=== PATIENT | female | born 1950 | race Caucasian/White ===

== ENCOUNTER 2017-06-07 16:35 | Inpatient (IN) | payer MEDICARE ==
[2017-06-07] VITALS (11 sets, daily range): BP systolic 143–202; BP diastolic 84–109; PULSE 104–117; RESP 12–26; TEMP 98.1–100.2; O2SAT 98–100
[~2017-06-07] VITALS: Ht 167.6 cm; Wt 55.9 kg
[2017-06-07] MEDS ORDERED: LORazepam 2 MG/ML VIAL ONE (16:40)
[2017-06-07] MEDS ORDERED: VECURONIUM BROMIDE 10 MG VIAL ONE (16:49)
[2017-06-07] MEDS ORDERED: LIDOCAINE HCL 2% 100 MG/5 ML SYRINGE ONE (16:49)
[2017-06-07] MEDS ORDERED: ADDE30TA PO (16:58)
[2017-06-07] MEDS ORDERED: BUPR1TAB70 PO (16:58)
[2017-06-07] MEDS ORDERED: TEMA30CA PO (16:58)
[2017-06-07] MEDS ORDERED: FLUO40CA PO (16:58)
[2017-06-07] MEDS ORDERED: VECURONIUM BROMIDE 10 MG VIAL IV PUSH ONE ×2 (17:00→17:15)
[2017-06-07] MEDS ORDERED: LORazepam 2 MG/ML VIAL IV PUSH ONE (17:15)
[2017-06-07] MEDS ORDERED: SODIUM CHLORIDE 0.9% FLUSH 10 ML FLUSH IV FLUSH PRN (17:15)
[2017-06-07] MEDS ORDERED: SODIUM CHLORIDE 0.9% FLUSH 10 ML FLUSH IVF PRN (17:15)
--- NOTE | 2017-06-07 17:22 | PD ---
HPI Chief Complaint: Altered Mental Status Time Seen by Provider: 17:01 Travel History International Travel<30 days: No Contact w/Intl Traveler<30days: No Traveled to known affect area: No History of Present Illness HPI 66-year-old female patient presents to the ER today brought in by EMS, has been more disoriented in the last 2 days according to , having several falls last night, slurred speech, gaze deviation according to EMS, but was answering some questions while on the ambulance. However, she had a rapid decline of mental status while on the ambulance and by the time she got to me, patient is unresponsive to pain, she is intubated by me for airway protection. Modifying Factors: None Associated Signs & Symptoms: Altered mental status, poorly responsive, intubated Risk Factors: None PFSH Past Medical History Medical History: Unable to Obtain Tetanus Vaccination: Unknown Past Surgical History Surgical History: Unable to Obtain Social History Alcohol Use: No Tobacco Use: No Allergies-Medications (Allergen,Severity, Reaction): Coded Allergies: No Allergy Information Available (Unverified , 06/07/17) Reported Meds & Prescriptions Reported Meds & Active Scripts Active Reported Adderall (Amphetamine-Dextroamphetamine) 30 Mg Tab 30 Mg PO BID Avoid late evening doses. Space doses at least 4 to 6 hours if more than once/day dosing. Fluoxetine (Fluoxetine HCl) 40 Mg Cap 40 Cap PO DAILY Bupropion HCl ER 12 HR (Bupropion HCl) 100 Mg Tab 150 Mg PO Q12HR Temazepam 30 Mg Cap 30 Mg PO HS PRN Review of Systems ROS Limitations: Intubated Physical Exam Narrative GENERAL: Well-developed elderly female patient currently obtunded, decorticate positioning notable, in respiratory distress. SKIN: Focused skin assessment warm/dry. HEAD: Ecchymosis notable over her left eyebrow, there is also ecchymosis notable over the right posterior auricular area. Normocephalic. EYES: Pupils large equal and round, poorly reactive to light bilaterally. No scleral icterus. No injection or drainage. There is notable right word gaze of the right eye. ENT: No nasal bleeding or discharge. Mucous membranes pink and moist. NECK: Trachea midline. No JVD. C-collar in place. CARDIOVASCULAR: Fast and regular rhythm. No murmur appreciated. RESPIRATORY: Moderate accessory muscle use. Decreased throughout. Breath sounds equal bilaterally. GASTROINTESTINAL: Abdomen soft, non-tender, nondistended. Hepatic and splenic margins not palpable. MUSCULOSKELETAL: No obvious deformities. No clubbing. No cyanosis. No edema. NEUROLOGICAL: Obtunded, unresponsive to painful stimuli, tonic, positioning. PSYCHIATRIC: Obtunded. Data Data Last Documented VS Vital Signs Date Time Temp Pulse Resp B/P (MAP) Pulse Ox O2 Delivery O2 Flow Rate FiO2 06/07/17 17:27 117 16 163/94 (117) 100 Ventilator 100 06/07/17 17:23 100.2 Orders Orders Lorazepam Inj (Ativan Inj) (06/07/17 16:40) Vecuronium 10 Mg Inj (Norcuron 10 Mg Inj (06/07/17 16:49) Lidocaine 2% Inj (Xylocaine 2% Inj) (06/07/17 16:49) Vecuronium 10 Mg Inj (Norcuron 10 Mg Inj (06/07/17 17:00) Electrocardiogram (06/07/17 17:) Ammonia (06/07/17 17:01) Complete Blood Count With Diff (06/07/17 17:) Comprehensive Metabolic Panel (06/07/17 17:) Creatine Kinase (Cpk) (06/07/17 17:01) Prothrombin Time / Inr (Pt) (06/07/17 17:) Act Partial Throm Time (Ptt) (06/07/17 17:) Troponin I (06/07/17 17:) Urinalysis - C+S If Indicated (06/07/17 17:) Lactic Acid Sepsis Protocol (06/07/17 17:) Arterial Blood Gas (Abg) (06/07/17 17:) Blood Culture (06/07/17 17:) Chest, Single Ap (06/07/17 17:) Ct Brain W/O Iv Contrast(Rout) (06/07/17 17:) Blood Glucose (06/07/17 17:) Ecg Monitoring (06/07/17 17:) Iv Access Insert/Monitor (06/07/17 17:) Oximetry (06/07/17 17:01) Urinary Catheter Insert/Apply (06/07/17 17:) Sodium Chloride 0.9% Flush (Ns Flush) (06/07/17 17:15) Drug Screen, Random Urine (06/07/17 17:01) Alcohol (Ethanol) (06/07/17 17:01) Ct Cerv Spine W/O Contrast (06/07/17 17:01) Ng Gastric Tube Insert/Monitor (06/07/17 17:01) Vecuronium 10 Mg Inj (Norcuron 10 Mg Inj (06/07/17 17:15) Sodium Chloride 0.9% Flush (Ns Flush) (06/07/17 17:15) Restraints Non-Violent ROSHAN.Q3H (06/07/17 17:01) Lorazepam Inj (Ativan Inj) (06/07/17 17:15) Admit Order (Ed Use Only) (06/07/17 17:41) MDM Medical Decision Making Medical Screen Exam Complete: Yes Emergency Medical Condition: Yes Medical Record Reviewed: Yes Interpretation(s) Last [address] 06/07/17 1701 Signed Impressions: Service Date/Time: Friday, June 07, 2017 17:13 - CONCLUSION: 1. Large subdural hemorrhage surrounding the right hemisphere measuring a maximum of 1.8 cm in thickness. There is significant mass effect associated with this. There is 1.2 cm of cgjvd-ai-sarn falcine shift. There is effacement of the perimesencephalic cisterns indicating significant downward herniation. There are edematous changes within the right temporal cortex and possibly within the sean. Maxx Lomeli MD Differential Diagnosis CVA versus ICH versus metabolic issues versus dehydration versus sepsis versus seizures Narrative Course Patient was intubated by me in the ER for airway protection. CAT scan reveals large subdural with large shift, concerning for herniation, and the case was discussed with Dr. Cedeno who came in and saw the patient, agrees to admit the patient to ICU. Aggregate critical care time was 35 minutes. Time to perform other separately billable procedures was not included in the critical care time. My time did not include minutes spent treating any other patients simultaneously or on activities that did not directly contribute to the patient's treatment. The services I provided to this patient were to treat and/or prevent clinically significant deterioration that could result in: Worsening ICH, herniation, I provided critical care services requiring my management, as noted below: Chart data review, documentation time, medication orders and management, vital sign assessments/reviewing monitor data, ordering and reviewing lab tests, ordering and interpreting/reviewing x-rays and diagnostic studies, care of the patient and discussion of the patient with the admitting physicians. Procedures Procedure Narrative After the risks and benefits were discussed the following procedure was performed: INTUBATION: The patient was put in optimal position for the procedure. Rapid sequence intubation was initiated by me using 2 milligrams of Ativan IV and 10 milligrams of vecuronium IV. The patient was intubated with a 6.5 cuffed endotracheal tube. Tube placement was confirmed by visualization of the tube and balloon passing through the cords, capnometry and subsequent chest x-ray. Breath sounds were equal and well aerated bilaterally postintubation. No breath sounds over stomach. Patient tolerated procedure well. Diagnosis Primary Impression: Intracranial hemorrhage Additional Impression: Endotracheally intubated Admitting Information Admitting Physician Requests: Admit Oni Morris MD Jun 07, 2017 17:22
--- NOTE | 2017-06-07 17:27 | RADRPT ---
EXAM DATE/TIME: 06/07/2017 17:13 [facility] COMPARISON: No previous studies available for comparison. INDICATIONS : Trauma, fall today. RADIATION DOSE: 34.71 CTDIvol (mGy) MEDICAL HISTORY : Non-responsive. SURGICAL HISTORY : Non-responsive. ENCOUNTER: Initial ACUITY: 1 day PAIN SCALE: Non-responsive LOCATION: Bilateral head TECHNIQUE: Multiple contiguous axial images were obtained of the head. Using automated exposure control and adj ustment of the mA and/or kV according to patient size, radiation dose was kept as low as reasonably a chievable to obtain optimal diagnostic quality images. DICOM format image data is available electro nically for review and comparison. FINDINGS: The exam demonstrates a large subdural hematoma along the right hemisphere. There is significant mass effect with approximately 1.2 cm of gwmdv-hx-ecwz falcine shift. There is evidence of downward herni ation. There is effacement of the perimesencephalic cisterns. There are edematous changes within the medial right temporal cortex as well. The fourth ventricle is quite small in size. The osseous structures of the skull are grossly intact. The sinuses are clear. CONCLUSION: 1. Large subdural hemorrhage surrounding the right hemisphere measuring a maximum of 1.8 cm in thickn ess. There is significant mass effect associated with this. There is 1.2 cm of zwjlf-nj-gmrm falcine shift. There is effacement of the perimesencephalic cisterns indicating significant downward herniati on. There are edematous changes within the right temporal cortex and possibly within the sean. Maxx Lomeli MD on June 07, 2017 at 17:20 Board Certified Radiologist. This report was verified electronically.
--- NOTE | 2017-06-07 18:05 | RADRPT ---
EXAM DATE/TIME: 06/07/2017 17:36 [facility] COMPARISON: CT BRAIN W/O CONTRAST, June 07, 2017, 17:13. INDICATIONS : Post intubation. Patient found unresponsive. MEDICAL HISTORY : Unobtainble. SURGICAL HISTORY : Unobtainble. ENCOUNTER: Initial ACUITY: 1 day PAIN SCORE: Non-responsive. LOCATION: Bilateral chest FINDINGS: Endotracheal tube is in good position. The heart is normal in size. There is minimal effusion at the right lung base. There are mild chronic interstitial changes. The lungs are otherwise clear. The osse ous structures are grossly intact. CONCLUSION: 1. Blunting of the costophrenic sulcus on the right suggesting a small contusion. 2. ET tube in good position. Maxx Lomeli MD on June 07, 2017 at 18:02 Board Certified Radiologist. This report was verified electronically.
--- NOTE | 2017-06-07 18:09 | PD.CONS ---
History of Present Illness Service Neurosurgery Consult Requested By Emergency room physician Reason for Consult Large right acute subdural hemorrhage after a fall Primary Care Physician Unknown Diagnoses: History of Present Illness 65-year-old female who was brought to [facility] emergency room after a fall with subsequent declining level of alertness and consciousness. By the time she presented to the emergency room she was noted to be decerebrate posturing with a Janeth Coma Score 4. She was intubated and CT scan head obtained reveals a large acute right frontotemporoparietal 18 cm thick subdural hemorrhage with mass effect and 12 mm midline shift and hypodensities in the brainstem possibly ischemia. Her is at the bedside and relates that she had multiple falls and her overall general health has been poor lately. She has been suffering from tremors with the possible Parkinson's disease along with multiple orthopedic surgeries which have limited her activity status. Review of Systems ROS Limitations: Unresponsive Past Family Social History Allergies: Coded Allergies: No Allergy Information Available (Unverified , 06/07/17) Reported Medications Adderall (Amphetamine-Dextroamphetamine) 30 Mg Tab 30 Mg PO BID Fluoxetine (Fluoxetine HCl) 40 Mg Cap 40 Cap PO DAILY Bupropion HCl ER 12 HR (Bupropion HCl) 100 Mg Tab 150 Mg PO Q12HR Temazepam 30 Mg Cap 30 Mg PO HS PRN Social History No alcohol or tobacco use. She is and is here with her. Physical Exam Vital Signs Vital Signs Date Time Temp Pulse Resp B/P (MAP) Pulse Ox O2 Delivery O2 Flow Rate FiO2 06/07/17 17:27 117 16 163/94 (117) 100 Ventilator 100 06/07/17 17:23 100.2 117 18 162/94 (116) 100 Ventilator 100 06/07/17 17:00 107 20 179/84 (115) 100 Ventilator 100 06/07/17 16:45 06/07/17 16:35 116 12 202/109 (140) 100 Physical Exam GENERAL: This is a well-nourished, well-developed patient, elderly female who is intubated and nonresponsive. SKIN: No rashes, ecchymoses or lesions. Cool and dry. HEAD: No battles or raccoon's sign noted. EYES: Pupils are fixed and dilated bilaterally 5 mm and nonreactive. ENT: Nose without bleeding, purulent drainage or septal hematoma. Throat without erythema with endotracheal tube in place. NECK: Trachea midline. No JVD or lymphadenopathy. Cervical collar in place. CARDIOVASCULAR: Regular rate and rhythm without murmurs, gallops, or rubs. RESPIRATORY: Clear to auscultation. Breath sounds equal bilaterally. No wheezes , rales, or rhonchi. GASTROINTESTINAL: Abdomen soft, non-tender, nondistended. No hepato-splenomegaly , or palpable masses. No guarding. MUSCULOSKELETAL: Extremities without clubbing, cyanosis, or edema. No joint tenderness, effusion, or edema noted. No calf tenderness. Negative Homans sign bilaterally. NEUROLOGICAL: She does not open her eyes to painful stimulation and has not received any sedation. No motor response to painful stimulation noted. No spontaneous respirations. Pupils are fixed and dilated. Negative corneal reflex, negative doll's reflex, negative gag reflex, negative cough reflex. Janeth Coma Score 3. Imaging Last Impressions Head CT 06/07/17 1701 Signed Impressions: Service Date/Time: Wednesday, June 07, 2017 17:13 - CONCLUSION: 1. Large subdural hemorrhage surrounding the right hemisphere measuring a maximum of 1.8 cm in thickness. There is significant mass effect associated with this. There is 1.2 cm of mhdqf-bq-eufo falcine shift. There is effacement of the perimesencephalic cisterns indicating significant downward herniation. There are edematous changes within the right temporal cortex and possibly within the sean. Maxx Lomeli MD Assessment and Plan Assessment and Plan 65-year-old lady with a large right acute subdural hemorrhage with mass effect and midline shift and cerebral transtentorial herniation with a Janeth's coma score of 3 with loss of brain stem reflexes. Unfortunately this is a severe injury with very poor prognosis. We discussed the option of an emergent right craniotomy for subdural hemorrhage evacuation but in all likelihood she will not achieve any functional recovery given that she has lost all of her brainstem reflexes and has progressed to clinical brain . relates that the she has expressed to him explicitly that she would not want prolonged ventilator support or any heroic measures to be undertaken. He does not want any surgical intervention undertaken. He is also contemplating withdrawal of ventilator support once the other family members have also notified. Accordingly we will honor their wishes. Gee Cedeno MD Jun 07, 2017 18:09
[2017-06-07] MEDS ORDERED: PHENYLEPHRINE INJ 40 MG in DEXTROSE 5% IN WATE 500 ML INJ 496 ML IV PRN ×2 (18:15)
[2017-06-07] MEDS ORDERED: CALCIUM GLUCONATE INJ 1 GM in SODIUM CHLORIDE 0.9% INJ 100 ML IV PRN (18:15)
[2017-06-07] MEDS ORDERED: POTASSIUM CHLOR 20 MEQ PREMIX 100 ML IV PRN ×3 (18:15→19:15)
[2017-06-07] MEDS ORDERED: LABETALOL HCL 100 MG/20 ML VIAL IV PUSH PRN (18:15)
[2017-06-07] MEDS ORDERED: TERBUTALINE INJ 1 MG/ML AMP SQ PRN (18:15)
[2017-06-07] MEDS ORDERED: ACETAMINOPHEN 325 MG TAB PO PRN (18:15)
[2017-06-07] MEDS ORDERED: MAGNESIUM SULFATE INJ 2 GM in SODIUM CHLORIDE 0.9% INJ 100 ML IV PRN (18:15)
--- NOTE | 2017-06-07 18:19 | RADRPT ---
EXAM DATE/TIME: 06/07/2017 17:13 [facility] COMPARISON: No previous studies available for comparison. INDICATIONS : Fall, neck pain. RADIATION DOSE: 16.98 CTDIvol (mGy) MEDICAL HISTORY : None SURGICAL HISTORY : None. ENCOUNTER: Initial ACUITY: 1 day PAIN SCALE: 5/10 LOCATION: neck TECHNIQUE: Volumetric scanning of the cervical spine was performed. Multiplanar reconstructions in the sagittal, coronal and oblique axial planes were performed. Using automated exposure control and adjustment o f the mA and/or kV according to patient size, radiation dose was kept as low as reasonably achievable to obtain optimal diagnostic quality images. DICOM format image data is available electronically f or review and comparison. FINDINGS: Alignment: Craniocervical and cervical vertebral body alignment are intact without evidence of listhesis. Osseous structures and facet joints: Vertebral bodies and posterior elements are intact. There is dose of compression deformity. Facet garth nts are in satisfactory alignment. Posterior elements are intact. Intervertebral disc spaces: Mild to moderate degenerative disc disease is noted at C5-6 and C6-7. A prominent posterior disc osteophyte complexes noted at C6-7. There is anterior epidural space and w ith mild spinal stenosis. Neurologic structures: Unremarkable CONCLUSION: 1. No evidence of traumatic listhesis or fracture. 2. Prominent disc osteophyte complex at C6-7 with anterior epidural effacement 3. No evidence of soft tissue injury. 4. Endotracheal tube in place. Tacos Serna MD on June 07, 2017 at 18:11 Board Certified Radiologist. This report was verified electronically.
[2017-06-07 18:25] LABS: AUTOMATED NEUTROPHIL # 18.6 TH/MM3 (1.8-7.7); BASOPHIL % 0.1 % (0.0-2.0); EOSINOPHIL % 0.1 % (0.0-4.0); HEMATOCRIT 38.8 % (35.0-46.0); HEMOGLOBIN 12.9 GM/DL (11.6-15.3); LYMPH % 2.8 % (9.0-44.0); LYMPHOCYTE # 0.6 TH/MM3 (1.0-4.8); MEAN CELL VOLUME 94.5 FL (80.0-100.0); MEAN CORPUSCULAR HEMOGLOBIN 31.6 PG (27.0-34.0); MEAN CORPUSCULAR HGB CONC 33.4 % (32.0-36.0); MEAN PLATELET VOLUME 7.5 FL (7.0-11.0); MONO % 6.3 % (0.0-8.0); MONOCYTE # 1.3 TH/MM3 (0-0.9); NEUT % 90.7 % (16.0-70.0); PLATELET COUNT 352 TH/MM3 (150-450); RED CELL DISTRIBUTION WIDTH 12.5 % (11.6-17.2); WHITE BLOOD COUNT 20.5 TH/MM3 (4.0-11.0)
[2017-06-07 18:36] LABS: BILIRUBIN, URINE NEG (NEG); BLOOD, URINE MOD (NEG); GLUCOSE,URINE NEG (NEG); HYALINE CAST, URINE 34 /lpf (RARE); KETONE, URINE 10 mg/dL (NEG); MUCUS URINE MANY /lpf (OCC); NITRITE,URINE NEG (NEG); PH, URINE 5.5 (5.0-8.5); URINE COLOR YELLOW (YELLW/STRAW); URINE LEUKOCYTE ESTERASE NEG (NEG)
[2017-06-07 18:38] LABS: INTERNATIONAL NORMALIZED RATIO 1.1 RATIO
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
[2017-06-07 18:44] LABS: LACTIC ACID SEPSIS PROTOCOL 2.8 mmol/L (0.4-2.0)
[2017-06-07] MEDS ORDERED: levETIRAcetam INJ 100 ML IV ONE (19:15)
[2017-06-07] MEDS ORDERED: MAGNESIUM OXIDE 400 MG TAB PO PRN (19:15)
[2017-06-07] MEDS ORDERED: POTASSIUM CHLORIDE 25 MEQ EFFERVESCENT TAB PO PRN (19:15)
[2017-06-07] MEDS ORDERED: MAGNESIUM SULFATE INJ 2 GM in SODIUM CHLORIDE 0.9% INJ 96 ML IV PRN (19:15)
[2017-06-07] MEDS ORDERED: POTASSIUM CHLOR 40 MEQ PREMIX 100 ML IV PRN ×2 (19:15)
[2017-06-07] MEDS ORDERED: SODIUM PHOSPHATE INJ 30 MMOL in SODIUM CHLOR 0.9% 250 ML INJ 240 ML IV PRN (19:15)
[2017-06-07] MEDS ORDERED: POTASSIUM PHOSPHATE MONOBASIC 500 MG TAB PO PRN (19:15)
[2017-06-07] MEDS ORDERED: POTASSIUM PHOSPHATE INJ 30 MMOL in SODIUM CHLOR 0.9% 250 ML INJ 250 ML IV PRN (19:15)
[2017-06-07] MEDS ORDERED: MAGNESIUM SULFATE INJ 4 GM in SODIUM CHLORIDE 0.9% INJ 92 ML IV PRN (19:15)
[2017-06-07] MEDS ORDERED: POTASSIUM PHOSPHATE MONOBASIC 500 MG TAB PO/TUBE PRN (19:15)
[2017-06-07 19:24] LABS: ALBUMIN 3.6 GM/DL (3.4-5.0); ALKALINE PHOSPHATASE 141 U/L (45-117); ALT (GPT) 28 U/L (10-53); AST (GOT) 50 U/L (15-37); BLOOD UREA NITROGEN 14 MG/DL (7-18); CALCIUM 9.2 MG/DL (8.5-10.1); CHLORIDE 96 MEQ/L (98-107); GLOMERULAR FILTRATION RATE 54 ML/MIN (>89); GLUCOSE,RANDOM 158 MG/DL (74-106); SODIUM (NA) 129 MEQ/L (136-145); TOTAL BILIRUBIN ADULT 0.7 MG/DL (0.2-1.0); TOTAL PROTEIN 8.4 GM/DL (6.4-8.2); TROPONIN I 0.03 NG/ML (0.02-0.05)
[2017-06-07] MEDS ORDERED: SODIUM CHLOR 0.9% 1000 ML INJ 1,000 ML IV ONE (19:30)
[2017-06-07] MEDS ORDERED: NS + KCL 20 MEQ INJ 1,000 ML IV SCH (20:00)
[2017-06-07] MEDS ORDERED: GLUCAGON 1 MG/ML VIAL OTHER PRN (20:00)
[2017-06-07] MEDS ORDERED: DEXTROSE 50% IN WATER 50 ML VIAL(D50) IV PUSH PRN (20:00)
[2017-06-07] MEDS ORDERED: hydrALAZINE HCL 20 MG/ML VIAL IV PUSH PRN (20:15)
[2017-06-07] MEDS: NS + KCL 20 MEQ INJ 1,000 ML IV SCH (20:15)
[2017-06-07] MEDS ORDERED: RESP: ALBUTEROL 2.5 MG/3 ML NEB (PRN) NEB (20:15)
[2017-06-07] MEDS: SODIUM CHLORIDE 23.4% INJ 188 MEQ in SODIUM CHLOR 0.9% 1000 ML INJ 1,000 ML IV SCH (21:00)
[2017-06-07] MEDS: SODIUM CHLORIDE 0.9% FLUSH 10 ML FLUSH IV FLUSH SCH (21:00)
[2017-06-07] MEDS: FAMOTIDINE 40 MG/5 ML LIQ 50 ML BTL NG SCH (21:00)
[2017-06-07] MEDS: CHLORHEXIDINE 0.12% (ORAL KIT) 15 ML CUP MT SCH (21:00)
[2017-06-07] MEDS: RESP: ALBUTEROL 2.5 MG/3 ML NEB (SCH) NEB (21:11)
[2017-06-07] MEDS: PROPOFOL 1000 MG/100 ML INJ 100 ML IV PRN (21:50)
[2017-06-08] VITALS (14 sets, daily range): BP systolic 115–142; BP diastolic 70–80; PULSE 92–108; RESP 22–32; TEMP 98–99.7; O2SAT 93–100
[2017-06-08] MEDS: RESP: ALBUTEROL 2.5 MG/3 ML NEB (SCH) NEB ×4 (02:56→19:54)
[2017-06-08] MEDS: NS + KCL 20 MEQ INJ 1,000 ML IV SCH ×2 (04:56→16:43)
[2017-06-08] MEDS: PROPOFOL 1000 MG/100 ML INJ 100 ML IV PRN ×2 (04:56→21:19)
[2017-06-08 05:43] LABS: AUTOMATED NEUTROPHIL # 8.2 TH/MM3 (1.8-7.7); BASOPHIL % 0.1 % (0.0-2.0); HEMATOCRIT 27.7 % (35.0-46.0); HEMOGLOBIN 9.5 GM/DL (11.6-15.3); LYMPHOCYTE # 0.7 TH/MM3 (1.0-4.8); MEAN CELL VOLUME 94.1 FL (80.0-100.0); MEAN CORPUSCULAR HEMOGLOBIN 32.3 PG (27.0-34.0); MEAN CORPUSCULAR HGB CONC 34.3 % (32.0-36.0); MEAN PLATELET VOLUME 7.4 FL (7.0-11.0); MONO % 11.8 % (0.0-8.0); MONOCYTE # 1.2 TH/MM3 (0-0.9); NEUT % 81.1 % (16.0-70.0); PLATELET COUNT 226 TH/MM3 (150-450); RED BLOOD COUNT 2.95 MIL/MM3 (4.00-5.30); RED CELL DISTRIBUTION WIDTH 12.3 % (11.6-17.2); WHITE BLOOD COUNT 10.2 TH/MM3 (4.0-11.0)
[2017-06-08] MEDS: INSULIN ASPART SUPPLEMENTAL SCALE SQ SCH ×4 (06:00→15:00)
[2017-06-08 06:14] LABS: BICARBONATE 22.6 MEQ/L (21.0-32.0); CALCIUM 7.5 MG/DL (8.5-10.1); CREATININE 0.42 MG/DL (0.50-1.00); PHOSPHORUS 1.8 MG/DL (2.5-4.9)
[2017-06-08] MEDS: CHLORHEXIDINE 0.12% (ORAL KIT) 15 ML CUP MT SCH ×2 (08:00→21:21)
[2017-06-08] MEDS: FAMOTIDINE 40 MG/5 ML LIQ 50 ML BTL NG SCH ×2 (08:37→21:00)
[2017-06-08] MEDS: SODIUM CHLORIDE 0.9% FLUSH 10 ML FLUSH IV FLUSH SCH ×2 (08:37→21:00)
--- NOTE | 2017-06-08 09:34 | HHI.CCPN ---
Subjective Remarks/Hospital Course 65-year-old female with past medical history of depression who presented to [facility] emergency department with altered mental status and was found to have acute subdural hematoma. Her states that she has been ill last week with a flulike illness. She also has chronic depression, anxiety and tremor. She had undergone workup for possible Parkinson 's disease. She was recently started on bupropion about a week ago and she has noticed increased anxiety and "not thinking clearly" which she attributed to the medication. Today she fell three times. Once she fell from standing in the bedroom this morning, then rolled out of bed. Around 2:30 she fell off the toilet and hit her right head on the side of the bathtub. states she was unresponsive. Per EVAC she was speaking some during transport but GCS was 4 upon arrival. She was intubated in the ED for airway protection. CT demonstrated 1.8 cm subdural hematoma with 1.2 [id number] midline shift. There is evidence of uncal herniation. There was edema right temporal cortex and possibly the sean per report. Dr. Cedeno has spoken with patient's and discussed poor prognosis with or without surgical intervention based on loss of some brainstem reflexes and states he does not believe patient would want to proceed with surgery. She will be admitted to [facility]. Son from [place] to arrive tomorrow. 06/08: Devastating neurological injury after fall. Large right acute SDH with herniation. Clinical exam consistent with approaching brain . Objective Vital Signs Date Time Temp Pulse Resp B/P (MAP) Pulse Ox O2 Delivery O2 Flow Rate FiO2 06/08/17 08:00 98.1 94 22 115/70 (85) 99 06/08/17 07:45 50 06/08/17 07:00 Mechanical Ventilator Intake and Output 06/08/17 06/08/17 06/09/17 08:00 16:00 00:00 Intake Total 1100 ml Output Total 800 ml Balance 300 ml Result Diagram: 06/08/17 0409 06/08/17 040 Other Results Laboratory Tests Test 06/07/17 18:11 06/07/17 21:50 Blood Gas Puncture Site RT RADIAL LT RADIAL Blood Gas Patient Temperature 98.6 98.6 Blood Gas HCO3 20 mmol/L (22-26) 19 mmol/L (22-26) Blood Gas Base Excess -4.3 mmol/L (-2-2) -5.1 mmol/L (-2-2) Blood Gas Oxygen Saturation 98 % (90-100) 98 % (90-100) Arterial Blood pH 7.41 (7.380-7.420) 7.40 (7.380-7.420) Arterial Blood Partial Pressure CO2 31 mmHg (38-42) 32 mmHg (38-42) Arterial Blood Partial Pressure O2 519 mmHG (61-120) 241 mmHg (61-120) Arterial Blood Oxygen Content 16.9 Vol % (12.0-20.0) 14.1 Vol % (12.0-20.0) Arterial Blood Carboxyhemoglobin 0.7 % (0-4) 0.9 % (0-4) Arterial Blood Methemoglobin 1.0 % (0-2) 1.1 % (0-2) Blood Gas Hemoglobin 11.3 G/DL (12.0-16.0) 9.9 G/DL (12.0-16.0) Oxygen Delivery Device VENTILATOR VENTILATOR Blood Gas Ventilator Setting VAC/16/500/+5 PRVC/AC Blood Gas Inspired Oxygen 100 % 50 % Objective Remarks GENERAL: Well-nourished, well-developed thin patient who is orotracheally intubated on mechanical ventilation. She is not on any continuous sedation. SKIN: Warm and dry. HEAD: Atraumatic. Normocephalic. EYES: Pupils equal and round, 5 mm and fixed bilaterally, unresponsive to light. No scleral icterus. No injection or drainage. ENT: No nasal bleeding or discharge. Mucous membranes pink and moist. NECK: Trachea midline. Orally intubated. CARDIOVASCULAR: Tachycardic, regular with sinus tach. No murmurs rubs or gallops. No JVD. RESPIRATORY: 6.[address] There is some blood in the oropharynx. Good breath sounds with rhonchi bilaterally. GASTROINTESTINAL: Abdomen soft, non-tender, nondistended. Midline vertical incision well-healed. : Whyte in place with yellow urine output. MUSCULOSKELETAL: Extremities without clubbing, cyanosis, or edema. No obvious deformities. Well perfused. NEUROLOGICAL: No eye opening. Pupils fixed and dilated to 5 mm. No corneal reflex. No gag. No motor response of upper extremities to deep central noxious stimuli. Ankle flexor response to deep noxious stimuli of lower extremities. Babinski upgoing bilaterally. A/P Assessment and Plan NEURO: Fall Acute subdural hematoma with herniation Neurochecks in ISC Avoid hyponatremia. 2% NaCl at 30 mL/h. Monitor sodium. End-tidal CO2 monitoring with target PaCO2 of 35-40 Keppra 500 mg IV every 12 hours for seizure prophylaxis Was not on antiplatelet or anticoagulant therapy Neurosurgery following, Dr. Cedeno and plan is for nonoperative management per discussion with patient's . Not a survivable injury. RESP: Acute respiratory failure Prior tobacco abuse Intubated with 6.5 endotracheal tube in ED Adjust ventilator to lower tidal volume ventilation with PRVC tidal volume 400/ rate 22/I time 1/PEEP 5/FiO2 100%. Wean FiO2 for sats greater than 92%. We will place on end-tidal CO2 monitoring and obtain ABG to correlate. Adjust minute ventilation to achieve target PaCO2 of 35-40. Albuterol every 6 hours and every 2 hours as needed. (avoided ipratropium to avoid drying of bronchial secretions given the 6.5 endotracheal tube) Chest x-ray was satisfactory endotracheal tube position. Right lower lobe atelectasis. CV: Monitor hemodynamics Labetalol/hydralazine as needed to maintain systolic blood pressure less than 160 Add pressors if they would be needed to maintain mean arterial pressure greater than 65 Bolus 1 L NS now. 0.9 NaCl 20 mg of KCl per liter at 80 from a liters per hour. 2% NaCl at 30 L/h. Follow-up lactic acid GI: Mild AST elevation Insert OG tube in place to low intermittent wall suction. Trend LFT FEN/RENAL: Hyponatremia Mild hyponatremia may be chronic but addressed with 2% 30 mL/hr as part of hyperosmolar therapy for intracerebral edema. ID: Leukocytosis, likely reactive UA with no evidence of infection Patient is at risk for aspiration pneumonitis/pneumonia, will observe Send blood cultures No antibiotics indicated at this time HEME: Was not on antiplatelets or anticoagulant therapy. ENDO: Acute hyperglycemia Likely reactive secondary to subdural hematoma. Will monitor bedside glucose every 6 hours and initiate low-dose insulin sliding scale as indicated PROPH: SCDs for DVT prophylaxis. Pharmacologic DVT prophylaxis is contraindicated due to subdural hematoma. Famotidine OG for stress ulcer prophylaxis ACCESS: Peripheral IV providing adequate access at this time. Place CVL and art line if indicated. Overall impression: Terminal neurological injury following fall. Acute subdural hemorrhage has severely compressed the brain and herniation is ensuing.. Alex Best MD Jun 08, 2017 09:34
[2017-06-08] MEDS: levETIRAcetam INJ 500 MG in SODIUM CHLORIDE 0.9% INJ 100 ML IV SCH ×2 (09:49→21:20)
--- NOTE | 2017-06-08 13:59 | HHI.NSPN ---
(Shen Guzman) History Chief Complaint: Large subdural hemorrhage (Shen Guzman) Interval History 65-year-old female who was brought to [facility] emergency room after a fall with subsequent declining level of alertness and consciousness. By the time she presented to the emergency room she was noted to be decerebrate posturing with a Lorimor Coma Score 4. She was intubated and CT scan head obtained reveals a large acute right frontotemporoparietal 18 cm thick subdural hemorrhage with mass effect and 12 mm midline shift and hypodensities in the brainstem possibly ischemia. Her is at the bedside and relates that she had multiple falls and her overall general health has been poor lately. She has been suffering from tremors with the possible Parkinson's disease along with multiple orthopedic surgeries which have limited her activity status. 06/08/17: Pt intubated. Pupils 5mm NR bilaterally. Positive cough. No gag reflex. Pt extends to deep pain in upper chest. (Shen Guzman) System Review Comments Not able to obtain given clinical condition. (Shen Guzman) Exam Results Vital Signs Date Time Temp Pulse Resp B/P (MAP) Pulse Ox O2 Delivery O2 Flow Rate FiO2 06/08/17 12:10 93 50 06/08/17 08:00 98.1 94 22 115/70 (85) 06/08/17 07:00 Mechanical Ventilator Intake and Output 06/08/17 06/08/17 06/09/17 08:00 16:00 00:00 Intake Total 1100 ml Output Total 800 ml Balance 300 ml (Shen Guzman) Physical Examination General: Pt intubated in ICU Eyes: Pupils 5mm bilaterally NR bilaterally Resp: Intubated. CTA bilaterally. RR is 30-32. Heart: Tachycardic. No murmurs Abd: Soft absent bs Skin: No cyanosis or erythema Muscle: Not following for muscle testing. She extends the RUE to deep pain in upper chest. Neuro: Pt not opening eyes. Pupils 5mm bilaterally. NR bilaterally. Not following commands. She extends RUE to deep pain in upper chest. She is breathing over the vent. positive cough reflex. No gag. (Shen Guzman) Lab, Micro, Other Results Last Impressions Head CT 06/07/171700 Signed Impressions: Service Date/Time: Wednesday, June 07, 2017 17:13 - CONCLUSION: 1. Large subdural hemorrhage surrounding the right hemisphere measuring a maximum of 1.8 cm in thickness. There is significant mass effect associated with this. There is 1.2 cm of [id number]-[id number] falcine shift. There is effacement of the perimesencephalic cisterns indicating significant downward herniation. There are edematous changes within the right temporal cortex and possibly within the sean. Maxx Lomeli MD Chest X-Ray 06/07/171700 Signed Impressions: Service Date/Time: Wednesday, June 07, 2017 17:36 - CONCLUSION: 1. Blunting of the costophrenic sulcus on the right suggesting a small contusion. 2. ET tube in good position. Maxx Lomeli MD Cervical Spine CT 06/07/171700 Signed Impressions: Service Date/Time: Wednesday, June 07, 2017 17:13 - CONCLUSION: 1. No evidence of traumatic listhesis or fracture. 2. Prominent disc osteophyte complex at C6- 7 with anterior epidural effacement 3. No evidence of soft tissue injury. 4. Endotracheal tube in place. Tacos Serna MD Laboratory Tests Test 06/07/17 17:15 06/07/17 17:25 06/07/17 18:11 06/07/17 20:40 Blood Urea Nitrogen 14 MG/DL Creatinine 0.90 MG/DL Random Glucose 158 MG/DL Total Protein 8.4 GM/DL Albumin 3.6 GM/DL Calcium Level 9.2 MG/DL Alkaline Phosphatase 141 U/L Aspartate Amino Transf (AST/SGOT) 50 U/L Alanine Aminotransferase (ALT/SGPT) 28 U/L Total Bilirubin 0.7 MG/DL Sodium Level 129 MEQ/L Potassium Level 4.4 MEQ/L Chloride Level 96 MEQ/L Carbon Dioxide Level 19.0 MEQ/L Anion Gap 14 MEQ/L Estimat Glomerular Filtration Rate 54 ML/MIN Total Creatine Kinase 536 U/L Creatine Kinase MB 3.8 NG/ML Creatine Kinase MB % 0.7 % Troponin I 0.03 NG/ML Ethyl Alcohol Level LESS THAN 3 MG/DL White Blood Count 20.5 TH/MM3 Red Blood Count 4.10 MIL/MM3 Hemoglobin 12.9 GM/DL Hematocrit 38.8 % Mean Corpuscular Volume 94.5 FL Mean Corpuscular Hemoglobin 31.6 PG Mean Corpuscular Hemoglobin Concent 33.4 % Red Cell Distribution Width 12.5 % Platelet Count 352 TH/MM3 Mean Platelet Volume 7.5 FL Neutrophils (%) (Auto) 90.7 % Lymphocytes (%) (Auto) 2.8 % Monocytes (%) (Auto) 6.3 % Eosinophils (%) (Auto) 0.1 % Basophils (%) (Auto) 0.1 % Neutrophils # (Auto) 18.6 TH/MM3 Lymphocytes # (Auto) 0.6 TH/MM3 Monocytes # (Auto) 1.3 TH/MM3 Eosinophils # (Auto) 0.0 TH/MM3 Basophils # (Auto) 0.0 TH/MM3 CBC Comment DIFF FINAL Differential Comment Prothrombin Time 11.0 SEC Prothromb Time International Ratio 1.1 RATIO Activated Partial Thromboplast Time 24.7 SEC Urine Color YELLOW Urine Turbidity CLEAR Urine pH 5.5 Urine Specific [place] 1.020 Urine Protein 30 mg/dL Urine Glucose (UA) NEG mg/dL Urine Ketones 10 mg/dL Urine Occult Blood MOD Urine Nitrite NEG Urine Bilirubin NEG Urine Urobilinogen LESS THAN 2.0 MG/DL Urine Leukocyte Esterase NEG Urine RBC 2 /hpf Urine WBC 2 /hpf Urine Hyaline Casts 34 /lpf Urine Mucus MANY /lpf Microscopic Urinalysis Comment CATH-CULT NOT IND Lactic Acid Level 2.8 mmol/L Ammonia 14 MCMOL/L Urine Opiates Screen NEG Urine Barbiturates Screen NEG Urine Amphetamines Screen NEG Urine Benzodiazepines Screen POS Urine Cocaine Screen NEG Urine Cannabinoids Screen NEG Blood Gas Puncture Site RT RADIAL Blood Gas Patient Temperature 98.6 Blood Gas HCO3 20 mmol/L Blood Gas Base Excess -4.3 mmol/L Blood Gas Oxygen Saturation 98 % Arterial Blood pH 7.41 Arterial Blood Partial Pressure CO2 31 mmHg Arterial Blood Partial Pressure O2 519 mmHG Arterial Blood Oxygen Content 16.9 Vol % Arterial Blood Carboxyhemoglobin 0.7 % Arterial Blood Methemoglobin 1.0 % Blood Gas Hemoglobin 11.3 G/DL Oxygen Delivery Device VENTILATOR Blood Gas Ventilator Setting VAC/16/500/+5 Blood Gas Inspired Oxygen 100 % Nasal Screen MRSA (PCR) MRSA NOT DETECTED Test 06/07/17 20:56 06/07/17 21:50 06/08/17 04:09 Lactic Acid Level 1.9 mmol/L Blood Gas Puncture Site LT RADIAL Blood Gas Patient Temperature 98.6 Blood Gas HCO3 19 mmol/L Blood Gas Base Excess -5.1 mmol/L Blood Gas Oxygen Saturation 98 % Arterial Blood pH 7.40 Arterial Blood Partial Pressure CO2 32 mmHg Arterial Blood Partial Pressure O2 241 mmHg Arterial Blood Oxygen Content 14.1 Vol % Arterial Blood Carboxyhemoglobin 0.9 % Arterial Blood Methemoglobin 1.1 % Blood Gas Hemoglobin 9.9 G/DL Oxygen Delivery Device VENTILATOR Blood Gas Ventilator Setting PRVC/AC Blood Gas Inspired Oxygen 50 % White Blood Count 10.2 TH/MM3 Red Blood Count 2.95 MIL/MM3 Hemoglobin 9.5 GM/DL Hematocrit 27.7 % Mean Corpuscular Volume 94.1 FL Mean Corpuscular Hemoglobin 32.3 PG Mean Corpuscular Hemoglobin Concent 34.3 % Red Cell Distribution Width 12.3 % Platelet Count 226 TH/MM3 Mean Platelet Volume 7.4 FL Neutrophils (%) (Auto) 81.1 % Lymphocytes (%) (Auto) 7.0 % Monocytes (%) (Auto) 11.8 % Eosinophils (%) (Auto) 0.0 % Basophils (%) (Auto) 0.1 % Neutrophils # (Auto) 8.2 TH/MM3 Lymphocytes # (Auto) 0.7 TH/MM3 Monocytes # (Auto) 1.2 TH/MM3 Eosinophils # (Auto) 0.0 TH/MM3 Basophils # (Auto) 0.0 TH/MM3 CBC Comment DIFF FINAL Differential Comment Blood Urea Nitrogen 7 MG/DL Creatinine 0.42 MG/DL Random Glucose 105 MG/DL Calcium Level 7.5 MG/DL Phosphorus Level 1.8 MG/DL Magnesium Level 2.0 MG/DL Sodium Level 142 MEQ/L Potassium Level 3.4 MEQ/L Chloride Level 111 MEQ/L Carbon Dioxide Level 22.6 MEQ/L Anion Gap 8 MEQ/L Estimat Glomerular Filtration Rate 130 ML/MIN (Shen Guzman) Medical Decision Making Impression and Plan A: 65-year-old lady with a large right acute subdural hemorrhage with mass effect and midline shift and cerebral transtentorial herniation with a Janeth' s coma score of 3 with loss of brain stem reflexes. Unfortunately this is a severe injury with very poor prognosis. P: Continue with supportive care as their son is coming in soon. Dr. Cedeno and I have both discussed pts condition with pts at bedside and states she would not want to proceed with surgical intervention or prolonged ventilator. Pts states their son is coming in from out of state and they are contemplating withdrawing care. (Shen Guzman) Attending Statement The exam, history, and the medical decision-making described in the above note were completed with the assistance of the mid-level provider. I reviewed and agree with the findings presented. I attest that I had a [id number] encounter with the patient on the same day, and personally performed and documented my assessment and findings in the medical record. Neurologic exam remains very poor. at bedside states that he wants ventilator and supportive care be were drawn is waiting for the son to arrive from out of state this evening. (Gee Cedeno MD) Shen Guzman Jun 08, 2017 13:59 Gee Cedeno MD Jun 08, 2017 15:43
--- NOTE | 2017-06-08 16:42 | EKG ---
Date Performed: 06/07/2017 Time Performed: 17:39:31 PTAGE: 89 years EKG: SINUS TACHYCARDIA NONSPECIFIC ST-T WAVE CHANGES WITH ST DEPRESSION ANTEROSEPTAL Clinical co rrelation is recommended NO PREVIOUS TRACING DOCTOR: Rishabh Coronel Interpretating Date/Time 06/08/2017 16:42:19
[2017-06-08] MEDS: SODIUM CHLORIDE 23.4% INJ 188 MEQ in SODIUM CHLOR 0.9% 1000 ML INJ 1,000 ML IV SCH (21:36)
[2017-06-09] VITALS (11 sets, daily range): BP systolic 97–115; BP diastolic 54–67; PULSE 74–112; RESP 22–30; TEMP 97.7–100.7; O2SAT 95–100
[2017-06-09] MEDS: PROPOFOL 1000 MG/100 ML INJ 100 ML IV PRN (03:12)
[2017-06-09] MEDS: RESP: ALBUTEROL 2.5 MG/3 ML NEB (SCH) NEB ×2 (03:46→07:49)
[2017-06-09] MEDS: INSULIN ASPART SUPPLEMENTAL SCALE SQ SCH ×3 (06:00→11:24)
[2017-06-09] MEDS: NS + KCL 20 MEQ INJ 1,000 ML IV SCH (08:00)
[2017-06-09] MEDS: CHLORHEXIDINE 0.12% (ORAL KIT) 15 ML CUP MT SCH (08:00)
[2017-06-09] MEDS: SODIUM CHLORIDE 0.9% FLUSH 10 ML FLUSH IV FLUSH SCH (09:00)
[2017-06-09] MEDS: FAMOTIDINE 40 MG/5 ML LIQ 50 ML BTL NG SCH (09:00)
[2017-06-09] MEDS: levETIRAcetam INJ 500 MG in SODIUM CHLORIDE 0.9% INJ 100 ML IV SCH (09:00)
[2017-06-09] MEDS ORDERED: LORazepam 2 MG/ML VIAL IV PUSH ONE ×2 (10:45→11:15)
[2017-06-09] MEDS ORDERED: HYOSCYAMINE 0.5 MG/ML AMP IV PUSH ONE (10:45)
[2017-06-09] MEDS ORDERED: MORPHINE SULFATE 8 MG/ML INJ IV PUSH ONE (10:45)
[2017-06-09] MEDS ORDERED: HYOSCYAMINE 0.5 MG/ML AMP IV PUSH PRN (11:15)
[2017-06-09] MEDS ORDERED: MORPHINE SULFATE 4 MG/ML INJ IV PUSH ONE (11:15)
[2017-06-09] MEDS ORDERED: LORazepam 2 MG/ML VIAL IV PUSH PRN ×2 (11:15)
[2017-06-09] MEDS ORDERED: MORPHINE SULFATE 8 MG/ML INJ IV PUSH PRN (11:15)
[2017-06-09] MEDS ORDERED: FUROSEMIDE 20 MG/2 ML VIAL IV PUSH PRN (11:15)
[2017-06-09] MEDS ORDERED: MORPHINE SULFATE 4 MG/ML INJ IV PUSH PRN (11:15)
[2017-06-09] MEDS: SODIUM CHLORIDE 0.9% FLUSH 10 ML FLUSH IV FLUSH PRN ×2 (11:40→12:08)
[2017-06-09] MEDS ORDERED: LORazepam 2 MG/ML VIAL IV PUSH SCH (12:00)
[2017-06-09] MEDS ORDERED: MORPHINE SULFATE 4 MG/ML INJ IV PUSH SCH (12:00)
--- NOTE | 2017-06-09 14:01 | HHI.CCPN ---
Subjective Remarks/Hospital Course 65-year-old female with past medical history of depression who presented to [facility] emergency department with altered mental status and was found to have acute subdural hematoma. Her states that she has been ill last week with a flulike illness. She also has chronic depression, anxiety and tremor. She had undergone workup for possible Parkinson 's disease. She was recently started on bupropion about a week ago and she has noticed increased anxiety and "not thinking clearly" which she attributed to the medication. Today she fell three times. Once she fell from standing in the bedroom this morning, then rolled out of bed. Around 2:30 she fell off the toilet and hit her right head on the side of the bathtub. states she was unresponsive. Per EVAC she was speaking some during transport but GCS was 4 upon arrival. She was intubated in the ED for airway protection. CT demonstrated 1.8 cm subdural hematoma with 1.2 [id number] midline shift. There is evidence of uncal herniation. There was edema right temporal cortex and possibly the sean per report. Dr. Cedeno has spoken with patient's and discussed poor prognosis with or without surgical intervention based on loss of some brainstem reflexes and states he does not believe patient would want to proceed with surgery. She will be admitted to [facility]. Son from [place] to arrive tomorrow. 06/08: Devastating neurological injury after fall. Large right acute SDH with herniation. Clinical exam consistent with approaching brain . 06/09: Family has elected to withdraw artificial support, extubate and allow for natural . Patient at 1255 hours of cardiac standstill. Objective Vital Signs Date Time Temp Pulse Resp B/P (MAP) Pulse Ox O2 Delivery O2 Flow Rate FiO2 06/09/17 12:20 95 06/09/17 12:00 112 06/09/17 12:00 98.0 22 97/54 (68) 06/09/17 07:50 40 06/09/17 07:00 Mechanical Ventilator Intake and Output 06/09/17 06/09/17 06/10/17 08:00 16:00 00:00 Intake Total 500 ml Output Total 525 ml Balance -525 ml 500 ml Result Diagram: 06/08/17 0409 06/08/17 0409 Objective Remarks GENERAL: Well-nourished, well-developed thin patient who is orotracheally intubated on mechanical ventilation. She is not on any continuous sedation. SKIN: Warm and dry. HEAD: Atraumatic. Normocephalic. EYES: Pupils equal and round, 5 mm and fixed bilaterally, unresponsive to light. No scleral icterus. No injection or drainage. ENT: No nasal bleeding or discharge. Mucous membranes pink and moist. NECK: Trachea midline. Orally intubated. CARDIOVASCULAR: Tachycardic, regular with sinus tach. No murmurs rubs or gallops. No JVD. RESPIRATORY: 6.[address] There is some blood in the oropharynx. Good breath sounds with rhonchi bilaterally. GASTROINTESTINAL: Abdomen soft, non-tender, nondistended. Midline vertical incision well-healed. : Whyte in place with yellow urine output. MUSCULOSKELETAL: Extremities without clubbing, cyanosis, or edema. No obvious deformities. Well perfused. NEUROLOGICAL: No eye opening. Pupils fixed and dilated to 5 mm. No corneal reflex. No gag. No motor response of upper extremities to deep central noxious stimuli. Ankle flexor response to deep noxious stimuli of lower extremities. Babinski upgoing bilaterally. A/P Assessment and Plan NEURO: Fall Acute subdural hematoma with herniation Neurochecks in ISC Avoid hyponatremia. 2% NaCl at 30 mL/h. Monitor sodium. End-tidal CO2 monitoring with target PaCO2 of 35-40 Keppra 500 mg IV every 12 hours for seizure prophylaxis Was not on antiplatelet or anticoagulant therapy Neurosurgery following, Dr. Cedeno and plan is for nonoperative management per discussion with patient's . Not a survivable injury. RESP: Acute respiratory failure Prior tobacco abuse Intubated with 6.5 endotracheal tube in ED Adjust ventilator to lower tidal volume ventilation with PRVC tidal volume 400/ rate 22/I time 1/PEEP 5/FiO2 100%. Wean FiO2 for sats greater than 92%. We will place on end-tidal CO2 monitoring and obtain ABG to correlate. Adjust minute ventilation to achieve target PaCO2 of 35-40. Albuterol every 6 hours and every 2 hours as needed. (avoided ipratropium to avoid drying of bronchial secretions given the 6.5 endotracheal tube) Chest x-ray was satisfactory endotracheal tube position. Right lower lobe atelectasis. CV: Monitor hemodynamics Labetalol/hydralazine as needed to maintain systolic blood pressure less than 160 Add pressors if they would be needed to maintain mean arterial pressure greater than 65 Bolus 1 L NS now. 0.9 NaCl 20 mg of KCl per liter at 80 from a liters per hour. 2% NaCl at 30 L/h. Follow-up lactic acid GI: Mild AST elevation Insert OG tube in place to low intermittent wall suction. Trend LFT FEN/RENAL: Hyponatremia Mild hyponatremia may be chronic but addressed with 2% 30 mL/hr as part of hyperosmolar therapy for intracerebral edema. ID: Leukocytosis, likely reactive UA with no evidence of infection Patient is at risk for aspiration pneumonitis/pneumonia, will observe Send blood cultures No antibiotics indicated at this time HEME: Was not on antiplatelets or anticoagulant therapy. ENDO: Acute hyperglycemia Likely reactive secondary to subdural hematoma. Will monitor bedside glucose every 6 hours and initiate low-dose insulin sliding scale as indicated PROPH: SCDs for DVT prophylaxis. Pharmacologic DVT prophylaxis is contraindicated due to subdural hematoma. Famotidine OG for stress ulcer prophylaxis ACCESS: Peripheral IV providing adequate access at this time. Place CVL and art line if indicated. Overall impression: Terminal neurological injury following fall. Acute subdural hemorrhage has severely compressed the brain and herniation is ensuing.. Family elects withdrawal. Alex Best MD Jun 09, 2017 14:01
--- NOTE | 2017-06-09 14:05 | HHI.DS ---
Discharge Summary Admission Date Jun 07, 2017 at 17:42 Discharge Date: Jun 09, 2017 Admitting Diagnosis Intracranial bleed/intubated (1) Traumatic subdural hematoma with loss of consciousness of any duration with due to brain injury before regaining consciousness ICD Code: S06.5X7A - Traumatic subdural hemorrhage with loss of consciousness of any duration with due to brain injury before regaining consciousness, initial encounter Diagnosis: Principal Status: Acute (2) Acute respiratory failure ICD Code: J96.00 - Acute respiratory failure, unspecified whether with hypoxia or hypercapnia Diagnosis: Principal Status: Acute (3) Coma ICD Code: R40.20 - Unspecified coma Diagnosis: Secondary Status: Acute Procedures Intubation and mechanical ventilation. Brief History 65-year-old female with past medical history of depression who presented to [facility] emergency department with altered mental status and was found to have acute subdural hematoma. Her states that she has been ill last week with a flulike illness. She also has chronic depression, anxiety and tremor. She had undergone workup for possible Parkinson 's disease. She was recently started on bupropion about a week ago and she has noticed increased anxiety and "not thinking clearly" which she attributed to the medication. Today she fell three times. Once she fell from standing in the bedroom this morning, then rolled out of bed. Around 2:30 she fell off the toilet and hit her right head on the side of the bathtub. states she was unresponsive. Per EVAC she was speaking some during transport but GCS was 4 upon arrival. She was intubated in the ED for airway protection. CT demonstrated 1.8 cm subdural hematoma with 1.2 [id number] midline shift. There is evidence of uncal herniation. There was edema right temporal cortex and possibly the sean per report. Dr. Cedeno has spoken with patient's and discussed poor prognosis with or without surgical intervention based on loss of some brainstem reflexes and states he does not believe patient would want to proceed with surgery. She will be admitted to [facility]. Son from [place] to arrive tomorrow. CBC/BMP: 06/08/17 0409 06/08/17 0409 Significant Findings Laboratory Tests Test 06/07/17 17:15 06/07/17 17:25 06/07/17 18:11 06/07/17 20:40 Random Glucose 158 MG/DL (74-106) Total Protein 8.4 GM/DL (6.4-8.2) Alkaline Phosphatase 141 U/L (45-117) Aspartate Amino Transf (AST/SGOT) 50 U/L (15-37) Sodium Level 129 MEQ/L (136-145) Chloride Level 96 MEQ/L (98-107) Carbon Dioxide Level 19.0 MEQ/L (21.0-32.0) Estimat Glomerular Filtration Rate 54 ML/MIN (>89) Total Creatine Kinase 536 U/L (26-192) Creatine Kinase MB 3.8 NG/ML (0.5-3.6) White Blood Count 20.5 TH/MM3 (4.0-11.0) Neutrophils (%) (Auto) 90.7 % (16.0-70.0) Lymphocytes (%) (Auto) 2.8 % (9.0-44.0) Neutrophils # (Auto) 18.6 TH/MM3 (1.8-7.7) Lymphocytes # (Auto) 0.6 TH/MM3 (1.0-4.8) Monocytes # (Auto) 1.3 TH/MM3 (0-0.9) Urine Protein 30 mg/dL (NEG-TRACE) Urine Ketones 10 mg/dL (NEG) Urine Occult Blood MOD (NEG) Urine Mucus MANY /lpf (OCC) Lactic Acid Level 2.8 mmol/L (0.4-2.0) Urine Benzodiazepines Screen POS (NEG) Blood Gas HCO3 20 mmol/L (22-26) Blood Gas Base Excess -4.3 mmol/L (-2-2) Arterial Blood Partial Pressure CO2 31 mmHg (38-42) Arterial Blood Partial Pressure O2 519 mmHG (61-120) Blood Gas Hemoglobin 11.3 G/DL (12.0-16.0) Test 06/07/17 20:56 06/07/17 21:50 06/08/17 04:09 Blood Gas HCO3 19 mmol/L (22-26) Blood Gas Base Excess -5.1 mmol/L (-2-2) Arterial Blood Partial Pressure CO2 32 mmHg (38-42) Arterial Blood Partial Pressure O2 241 mmHg (61-120) Blood Gas Hemoglobin 9.9 G/DL (12.0-16.0) Red Blood Count 2.95 MIL/MM3 (4.00-5.30) Hemoglobin 9.5 GM/DL (11.6-15.3) Hematocrit 27.7 % (35.0-46.0) Neutrophils (%) (Auto) 81.1 % (16.0-70.0) Lymphocytes (%) (Auto) 7.0 % (9.0-44.0) Monocytes (%) (Auto) 11.8 % (0.0-8.0) Neutrophils # (Auto) 8.2 TH/MM3 (1.8-7.7) Lymphocytes # (Auto) 0.7 TH/MM3 (1.0-4.8) Monocytes # (Auto) 1.2 TH/MM3 (0-0.9) Creatinine 0.42 MG/DL (0.50-1.00) Calcium Level 7.5 MG/DL (8.5-10.1) Phosphorus Level 1.8 MG/DL (2.5-4.9) Potassium Level 3.4 MEQ/L (3.5-5.1) Chloride Level 111 MEQ/L (98-107) Imaging CT Head - large right SDH with herniation PE at Discharge Transfer Summary Family elected withdrawal of artificial care. Patient was in a coma and shortly after at 1255. Hospital Course 65-year-old female with past medical history of depression who presented to [facility] emergency department with altered mental status and was found to have acute subdural hematoma. Her states that she has been ill last week with a flulike illness. She also has chronic depression, anxiety and tremor. She had undergone workup for possible Parkinson 's disease. She was recently started on bupropion about a week ago and she has noticed increased anxiety and "not thinking clearly" which she attributed to the medication. Today she fell three times. Once she fell from standing in the bedroom this morning, then rolled out of bed. Around 2:30 she fell off the toilet and hit her right head on the side of the bathtub. states she was unresponsive. Per EVAC she was speaking some during transport but GCS was 4 upon arrival. She was intubated in the ED for airway protection. CT demonstrated 1.8 cm subdural hematoma with 1.2 [id number] midline shift. There is evidence of uncal herniation. There was edema right temporal cortex and possibly the sean per report. Dr. Cedeno has spoken with patient's and discussed poor prognosis with or without surgical intervention based on loss of some brainstem reflexes and states he does not believe patient would want to proceed with surgery. She will be admitted to [facility]. Son from [place] to arrive tomorrow. 06/08: Devastating neurological injury after fall. Large right acute SDH with herniation. Clinical exam consistent with approaching brain . 06/09: Family has elected to withdraw artificial support, extubate and allow for natural . Patient at 1255 hours of cardiac standstill. Pt Condition on Discharge: Deteriorating Alex Best MD Jun 09, 2017 14:05
== END 2017-06-09 14:41 | disposition expired | DRG 82 ==
LOC: NEPE 16:35 → NEDA 17:42 → EDBD 17:42 → N03A 20:11
PROVIDERS: ADMIT Neurological Surgery; ATTEND Neurological Surgery
PROC: 0BH17EZ Insertion of Endotracheal Airway into Trachea, Via Natural or Artificial Opening (ICD-10-PCS; principal; 2017-06-07)
PROC: 5A1935Z Respiratory Ventilation, Less than 24 Consecutive Hours (ICD-10-PCS; 2017-06-07)
DX: J96.00 Acute respiratory failure, unspecified whether with hypoxia or hypercapnia; G93.5 Compression of brain; E87.1 Hypo-osmolality and hyponatremia; J98.11 Atelectasis; R40.20 Unspecified coma; I46.9 Cardiac arrest, cause unspecified; D72.829 Elevated white blood cell count, unspecified; F32.9 Major depressive disorder, single episode, unspecified; S00.12XA Contusion of left eyelid and periocular area, initial encounter; S00.431A Contusion of right ear, initial encounter; R60.0 Localized edema; Z96.653 Presence of artificial knee joint, bilateral; R25.1 Tremor, unspecified; R73.9 Hyperglycemia, unspecified; F41.9 Anxiety disorder, unspecified; R40.2432 Glasgow coma scale score 3-8, at arrival to emergency department; R29.6 Repeated falls; W18.12XA Fall from or off toilet with subsequent striking against object, initial encounter; Z82.49 Family history of ischemic heart disease and other diseases of the circulatory system; Y92.002 Bathroom of unspecified non-institutional (private) residence as the place of occurrence of the external cause; Z72.0 Tobacco use
CPT/HCPCS: 31500; 36600; 51702; 70450; 71045; 72125; 80048; 80053; 80307; 81001; 82140; 82550; 82552; 82805; 82948; 83605; 83735; 84100; 84484; 85025; 85610; 85730; 87040; 87205; 87641; 93005; 94002; 94003; 94640; 94664; 94770; 96374; J1940; J1953; J1980; J2060; J2270; J3480; J7030; J7613